=== PATIENT | male | born 1995 | race Caucasian/White ===

== ENCOUNTER 2024-07-27 15:11 | Emergency (ER) | payer SELFPAY ==
[2024-07-27 15:18] VITALS: BP 110/85
--- NOTE | 2024-07-27 16:29 | ED.GENMED ---
History of Present Illness
General
Chief Complaint: Musculo-Skeletal Complaint
Source: patient
Time Seen by Provider: 07/27/24 15:27
History of Present Illness
History of Present Illness:
28-year-old male presenting to the emergency department for evaluation after he was lifting weights when he felt discomfort in the right side of his chest described to be a pulling sensation that was worse with movement, concern for a muscle injury
prompting him to come to the ER for further evaluation. He denies any chest pain, shortness of breath, difficulty breathing, cough, fevers or any other concerns at this time.
Past History
Past History
ED Past Medical History: Psychiatric
ED Past Surgical History: None
Social History
Tobacco: Non-smoker
Alcohol: None
Drug: None
Personal: Single
Living: with family
Employment: Employed
Review of Systems
Review of Systems
All Other Systems: ROS reviewed and negative except as documented in HPI and ROS
Phy Exam
Physical Exam
Physical Exam:
GENERAL: Alert , in no apparent distress
EYE: conjunctiva clear
NECK: Supple
ENT: mmm.
CARDIAC: Regular rate and rhythm
LUNGS: Clear breath sounds bilaterally, no acute respiratory distress, no wheezes/rales/rhonchi
CHEST WALL: No focal tenderness to palpation however pain is exacerbated with resisted extension of the arm
NEUROLOGICAL: Alert and oriented
SKIN: Warm and dry, skin intact.
MUSCULOSKELETAL: well perfused.
PSYCH: Normal and appropriate interaction.
Scores
Heart Failure Risk
Heart Failure Risk Score: Not Applicable
Heart Score for Chest Pain Patients
STEMI patient?: Not applicable
Withdrawal Assessment of Alcohol
Withdrawal Assessment Completed?: Not applicable
Course
Orders/Labs/Results
Orders:
Orders
07/27/24 15:19
Electrocardiogram (*1) Urgent
Reason for Study: Chest Pain
EKG- Treatment ONCE
07/27/24 15:27
CR Chest - 2 Views Urgent
Comment:
Reason For Exam: chest pain
Vital Signs
Initial and Last Documented VS:
Initial Vital Signs
Temp Pulse Resp BP Pulse Ox
98.1 F 70 18 110/85 98
07/27/24 15:18 07/27/24 15:18 07/27/24 15:18 07/27/24 15:18 07/27/24 15:18
Last Documented Vital Signs
Temp Pulse Resp BP Pulse Ox
98.1 F 60 18 145/75 98
07/27/24 15:18 07/27/24 17:28 07/27/24 17:28 07/27/24 17:28 07/27/24 17:28
MDM/Problems Addressed
Differential Diagnosis Includes:
Muscle strain, pneumothorax, no concern for ACS
MDM/Problems Addressed:
28-year-old male presenting to the ER for evaluation of right side chest discomfort that started while he was performing bench press at the gym, pain worse with simulated movement of bench pressing and palpation. No shortness of breath and clear
lungs to auscultation. Doubt pneumothorax but will obtain chest x-ray. EKG done in triage nonischemic. I suspect strain is most diagnosis. Will treat with anti-inflammatory/Tylenol as needed.
*Radiology
Radiology exam reviewed: preliminary read by ED provider (Normal chest x-ray)
*Pulse Oximetry
Patient hypoxic: no
*EKG
Heart Rate: 71
Rate: normal
Rhythm: sinus
[place]: normal axis
Ischemia: no ischemia
*Critical Care Note
Total Time (30-74mins, 75-104mins- exclusive of procedures): Not Applicable
Patient Management
Escalation/DeEscalation of care consider admission/obs:
Chest x-ray unremarkable. Patient stable for discharge home.
ED Attending Note
-
Portions of this chart may have been created with voice recognition software.� Occasional wrong word or��sound alike� substitutions may have occurred due to the inherent limitations of voice recognition software.
Discharge Plan
Departure
Patient Disposition: Home (Routine Discharge)
Date of Disposition: 07/27/24
Time of Disposition: 17:20
Patient with high blood pressure during this ER visit?: No
Discharge Problem:
Strain of chest wall
Instructions: Muscle Strain (DC)
Prescriptions:
No Action
fluoxetine [Prozac] 40 MG capsule
40 mg PO DAILY
lamotrigine [Lamictal] 150 MG tablet
150 mg PO DAILY
prednisone 10 MG tablet
10 mg PO .TAPER Qty: 80 0RF
Rx Instructions:
Take 40mg daily x7days, 30mg daily x7days,
20mg daily x7days, 10mg daily x7days.
ferrous sulfate [iron] 325 MG tablet
325 mg PO DAILY Qty: 30 0RF
mesalamine 400 MG capsule (with del rel tablets)
2,400 mg PO BID Qty: 360 0RF
Referrals:
Kenn Bess CRNP [Family Provider] -
Interventions
Interventions:
*Risk Screen - Suicide Last Done: 07/27/24 15:17
*General Assessment Last Done: 07/27/24 15:17
*Neglect/Abuse Screening Last Done: 07/27/24 15:17
*ED- Fall Risk Assessment Last Done: 07/27/24 17:29
*ED COVID-19 Vaccine History Last Done: 07/27/24 15:17
*Nursing Disposition Last Done: 07/27/24 17:29
ED-Musculoskeletal Assessment Last Done: 07/27/24 17:28
Discharge Date and Time
Discharge Date/Time: 07/27/24 17:31
Print Language: MAURITANIAN
[2024-07-27 17:28] VITALS: BP 145/75
== END 2024-07-27 17:31 | disposition home or self-care (01) ==
LOC: EMR 15:11
PROVIDERS: EMERGENCY PHYSICIAN Student in an Organized Health Care Education/Training Program; FAMILY PHYSICIAN Registered Nurse
DX: S29.011A Strain of muscle and tendon of front wall of thorax, initial encounter (principal); X50.0XXA Overexertion from strenuous movement or load, initial encounter; Y93.B9 Activity, other involving muscle strengthening exercises; R07.89 Other chest pain
CPT/HCPCS: 99283; 71046; 93005